=== PATIENT | male | born 1955 | race Caucasian/White ===

== ENCOUNTER 2023-11-12 13:06 | Emergency (ER) | payer OTHER, SELFPAY ==
[2023-11-12] VITALS (16 sets, daily range): BP systolic 169–204; BP diastolic 84–100; PULSE 57–77; RESP 15; TEMP 36.6; O2SAT 98–100; BMI 31.7
--- NOTE | 2023-11-12 13:17 | DI.RAD.S_ITS ---
PROCEDURE: XR FEMUR RT MIN 2V INDICATIONS: injury after fall down 1/2 flight stairs, TECHNIQUE: 2 views of the femur were acquired. COMPARISON: None. FINDINGS: Bones: No fractures or dislocations. No suspicious bony lesions. Soft tissues: No suspicious soft tissue calcifications or masses. IMPRESSION: No acute bony abnormality. Dictated by: Jeramy Alicia M.D. on 11/12/2023 at 15:33 Approved by: Jeramy Alicia M.D. on 11/12/2023 at 15:33
--- NOTE | 2023-11-12 13:17 | DI.RAD.S_ITS ---
PROCEDURE: XR TIBIA FUBULA RT 2V INDICATIONS: injury after fall down 1/2 flight stairs, TECHNIQUE: 2 views of the tibia and fibula were acquired. COMPARISON: None. FINDINGS: Bones: No fractures or dislocations. No suspicious bony lesions. Soft tissues: No suspicious soft tissue calcifications or masses. IMPRESSION: No acute bony abnormality. Dictated by: Jeramy Alicia M.D. on 11/12/2023 at 15:34 Approved by: Jeramy Alicia M.D. on 11/12/2023 at 15:34
--- NOTE | 2023-11-12 16:08 | ED.FALL ---
HPI - Fall General Chief Complaint: Fall Stated Complaint: fall, right knee deformity Time Seen by Provider: 11/12/23 15:37 Source: patient Mode of arrival: EMS History of Present Illness HPI Narrative: 67-year-old male stepping down a stairway this afternoon, missed the last step, fell to the side, had right knee pain, and his patella was deviated laterally, transported by EMS, with deformed knee. During his evaluation here in the emergency department his knee seemed to pop back into place. Still having medial and kneecap area knee pain. No other injuries. Related Data Previous Rx's Medication Instructions Recorded fluticasone propionate 50 2 spray intranasal DAILY #54.6 mL 01/25/20 mcg/actuation nasal spray,suspension (Flonase Allergy Relief) sertraline 50 mg tablet (Zoloft) 50 mg PO DAILY #90 tabs 01/25/20 Allergies Allergy/AdvReac Type Severity Reaction Status Date / Time No Known Drug Allergies Allergy Verified 11/12/23 13:18 Review of Systems Review of Systems Narrative: see HPI Patient History Medical History (Updated 11/12/23 @ 16:41 by Ash Taylor MD) Eczema Allergic rhinitis Depression Family History (Updated 02/22/20 @ 21:28 by Marie Avilez) Father Infection Mother Dementia Sister Cancer Social History Smoking Status: Never smoker Smoking Status: Never smoker alcohol intake frequency: 0-2 drinks per day Substance Use Type: does not use Exam Narrative Exam Narrative: GENERAL: Well-developed patient, in mild distress. HEAD: Atraumatic. Normocephalic. EYES: Pupils equal round and reactive. Extraocular motions intact. No scleral icterus. No injection or drainage. ENT: Nose without bleeding, purulent drainage. Throat without erythema, tonsillar hypertrophy or exudate. Airway patent. NECK: Trachea midline. Non tender CARDIOVASCULAR: Regular rate and rhythm without murmurs, gallops, or rubs. RESPIRATORY: Clear to auscultation. Breath sounds equal bilaterally. No wheezes, rales, or rhonchi. GASTROINTESTINAL: Abdomen soft, non-tender, nondistended. EXTREMITIES: Tenderness to kneecap right side, in anatomic position, no lateral right knee joint line tenderness, some tenderness to the medial joint line, we did not try valgus varus stress due to medial pain symptoms. He did seem to have really good endpoint with Haresh's testing. Good distal pulse right DP, good perfusion of the foot. Right lower extremity atraumatic, upper extremities atraumatic. BACK: Nontender without deformity or crepitance. No flank tenderness. NEURO: AOx3. SKIN: No rash or erythema of visible areas Initial Vital Signs Initial Vital Signs: Vital Signs Temperature 97.8 F 11/12/23 13:07 Pulse Rate 57 L 11/12/23 13:07 Respiratory Rate 15 11/12/23 13:07 Blood Pressure 195/100 H 11/12/23 13:07 Pulse Oximetry 100 11/12/23 13:07 Oxygen Delivery Method Room Air 11/12/23 13:07 Course Orders Ordered: ED Orders 11/12/23 13:17 XR femur RT min 2V Stat XR tibia fibula RT 2V Stat Vital Signs Vital signs: Vital Signs - 8 hr 11/12/23 13:18 11/12/23 13:30 11/12/23 13:30 Pulse Rate 60 57 L Blood Pressure 169/84 H Pulse Oximetry 99 98 Oxygen Delivery Method 11/12/23 13:55 11/12/23 13:55 11/12/23 14:00 Pulse Rate 59 L 59 L Blood Pressure 179/84 H Pulse Oximetry 100 99 Oxygen Delivery Method 11/12/23 14:00 11/12/23 14:30 11/12/23 14:30 Pulse Rate 60 Blood Pressure 178/92 H 175/88 H Pulse Oximetry 99 Oxygen Delivery Method Room Air 11/12/23 15:00 11/12/23 15:00 11/12/23 15:30 Pulse Rate 59 L 60 Blood Pressure 196/94 H Pulse Oximetry 99 99 Oxygen Delivery Method 11/12/23 15:31 11/12/23 15:31 11/12/23 16:00 Pulse Rate 57 L 77 Blood Pressure 171/86 H Pulse Oximetry 99 100 Oxygen Delivery Method 11/12/23 16:03 11/12/23 16:03 11/12/23 16:30 Pulse Rate 63 68 Blood Pressure 204/97 H Pulse Oximetry 100 99 Oxygen Delivery Method 11/12/23 16:31 11/12/23 16:31 11/12/23 16:38 Pulse Rate 66 Blood Pressure 180/86 H Pulse Oximetry 99 99 Oxygen Delivery Method Room Air Room Air 11/12/23 17:00 Pulse Rate Blood Pressure 184/93 H Pulse Oximetry Oxygen Delivery Method MDM - Fall Imaging Data Extremity x-ray #1: Radiologist's Impression: [address] [address] XRay Report Signed with Addenda Patient: Elvis Lawrence MR#: [id number] : 1955 Acct:[id number] Age/Sex: 67 / M Date of Service: 11/12/23 Loc: ED Accession Number: [id number] Procedure: XR tibia fibula RT 2V Ordering Provider: Ash Taylor MD ADDENDUMThis report includes an Addendum and supersedes previous reports for this exam. PROCEDURE: XR TIBIA FUBULA RT 2V INDICATIONS: injury after fall down 1/2 flight stairs, TECHNIQUE: 2 views of the tibia and fibula were acquired. COMPARISON: None. FINDINGS: Bones: No fractures or dislocations. No suspicious bony lesions. Soft tissues: No suspicious soft tissue calcifications or masses. IMPRESSION: No acute bony abnormality. Dictated by: Jeramy Alicia M.D. on 11/12/2023 at 15:34 Approved by: Jeramy Alicia M.D. on 11/12/2023 at 15:34 ADDENDUM: No abnormality of the knee. Dictated by: Jeramy Alicia M.D. on 11/12/2023 at 15:51 Approved by: Jeramy Alicia M.D. on 11/12/2023 at 15:51 Addendum Dictated By: Jeramy Alicia MD Addendum Signed By: 11/12/231550 Addendum Cosigned By: DD/ TD/TT: 11/12/23 PROCEDURE: XR TIBIA FUBULA RT 2V INDICATIONS: injury after fall down 1/2 flight stairs, TECHNIQUE: 2 views of the tibia and fibula were acquired. COMPARISON: None. FINDINGS: Bones: No fractures or dislocations. No suspicious bony lesions. Soft tissues: No suspicious soft tissue calcifications or masses. IMPRESSION: No acute bony abnormality. Dictated by: Jeramy Alicia M.D. on 11/12/2023 at 15:34 Approved by: Jeramy Alicia M.D. on 11/12/2023 at 15:34 Extremity x-ray #2: Radiologist's Impression: Close Femur X-Ray (Signed) Jeramy Alicia - 11/12/23 Tibia/Fibula X-Ray (Signed) Jeramy Alicia - 11/12/23 Launch?[address] [address] XRay Report Signed Patient: Elvis Lawrence MR#: [id number] : 1955 Acct:[id number] Age/Sex: 67 / M Date of Service: 11/12/23 Loc: ED Accession Number: [id number] Procedure: XR femur RT min 2V Ordering Provider: Ash Taylor MD PROCEDURE: XR FEMUR RT MIN 2V INDICATIONS: injury after fall down 1/2 flight stairs, TECHNIQUE: 2 views of the femur were acquired. COMPARISON: None. FINDINGS: Bones: No fractures or dislocations. No suspicious bony lesions. Soft tissues: No suspicious soft tissue calcifications or masses. IMPRESSION: No acute bony abnormality. Dictated by: Jeramy Alicia M.D. on 11/12/2023 at 15:33 Approved by: Jeramy Alicia M.D. on 11/12/2023 at 15:33 [facility] Narrative Medical decision making narrative: 67-year-old male had missed last step going down stairs, twisted his knee, kneecap was rotated to the right, while knee was bent 90?, EMS was called, he was splinted, during his evaluation his knee seemed to be improved, and felt like it went back into position, by time x-rays were actually performed they were anatomic, no injuries, see x-ray reports. He seems distally neurovascularly intact. He has medial right knee joint line tenderness, no gross effusion. No peripatellar tenderness. Good Haresh's and point on testing, did not attempt valgus or varus stress due to pain and tenderness medially. Placed into a knee immobilizer splint, crutches nonweightbearing. [id number] Tylenol and or Motrin, declined other pain medications. Home with . Follow up with local orthopedic surgeon, contact information provided. Return precautions discussed Discharge Plan Departure Patient Disposition: Home Clinical Impression: Strain of right knee, Dislocation of the knee cap Activity Restrictions/Additional Instructions: Fall going down last couple of steps of a stairway, missed the step, fall onto the right knee with bending of the knee and right lateral position by history of the kneecap, EMS transport, with splint in place, post splinting there seemed to be spontaneous improvement in kneecap position, by the time x-rays were done those results showed normal anatomic position of kneecap and other structures, no fractures obvious. Some tenderness to the right medial knee joint line, possible strain or injury to the medial collateral and/or medial meniscal ligaments of that knee. You did not describe separation of the foreleg from the thigh, no complete knee dislocation described, good pulse to the right foot, we did discuss advanced imaging of the vessels of the right knee/leg region, not indicated at this time given exam and history. Placed in crutches. Knee immobilizer. Follow up with local orthopedic surgeon next couple of days, call office tomorrow during regular hours. Take Tylenol and or ibuprofen as needed for pain control. Elevate ice as needed for reduced inflammation. Use crutches and do not put any weight on that knee for now until cleared by Orthopedic surgery. Return earlier to this/nearest emergency department for any change worsening symptoms or any concerns prior Prescriptions: No Action fluticasone propionate [Flonase Allergy Relief] 50 mcg/actuation spray,suspension 2 spray NASAL DAILY Qty: 54.6 3RF Rx Instructions: administer into each nostril sertraline [Zoloft] 50 mg tablet 50 mg PO DAILY Qty: 90 3RF Referrals: Kulwinder Beck ARNP [Primary Care Provider] - Aquilino Flanagan MD [Physician] - Stand Alone Forms: Patient Portal/API
== END 2023-11-12 17:06 | disposition home or self-care (01) ==
PROVIDERS: Emergency Provider Emergency Medicine; PCP Registered Nurse Diabetes Educator
DX: S83.91XA Sprain of unspecified site of right knee, initial encounter (principal); S83.004A Unspecified dislocation of right patella, initial encounter; W10.9XXA Fall (on) (from) unspecified stairs and steps, initial encounter
CPT/HCPCS: 73552; 73590; 99283

== ENCOUNTER → 2023-11-20 13:04 | Outpatient (CLI) | payer OTHER, SELFPAY ==
--- NOTE | 2023-11-20 13:32 | DI.MRI.S_ITS ---
PROCEDURE: MR KNEE RT WO CON INDICATIONS: DISLOCATION RIGHT KNEE /SPRAIN OF MEDIAL COLLATERAL TECHNIQUE: Noncontrast sagittal PD fast spin echo and T2 fast spin echo with fat saturation, sagittal 3-D FLASH with fat saturation; coronal T1 spin echo and PD fast spin echo with fat saturation, and axial PD fast spin echo with fat saturation through the knee. COMPARISON: None. FINDINGS: Image quality: Excellent. Menisci: Subtle oblique tear is seen involving posterior horn of medial meniscus extending to inferior articulating surface. The lateral meniscus is intact. The meniscal root ligaments appear intact. Cruciate ligaments: The anterior and posterior cruciate ligaments appear intact. Medial structures: The medial collateral ligament appears thickened with mild surrounding edema. Visualized portions of the pes anserinus tendons appear normal. No abnormal bursal fluid. Lateral structures: The lateral collateral ligament, long and short heads of the biceps femoris tendon appear intact. The popliteus tendon appears normal. Iliotibial band appears normal. Anterior structures: There is rupture of the medial patellofemoral ligament at its patellar insertion with significant lateral subluxation of patella. The lateral patellofemoral ligament is intact. High-grade partial-thickness tear involving distal quadriceps tendon at its superior patellar insertion with proximally retracted torn tendon fibers and extensive surrounding edema and fluid. Diffuse patellar tendinosis is seen. No patellar tendon rupture. Bones and cartilage: No acute fracture. Mild tricompartmental osteoarthritis and low-grade chondromalacia is seen. Joint space: Extensive subcutaneous soft tissue edema and swelling surrounding right knee is seen. There is moderate to large knee joint fluid. No Lea's cyst. Normal appearing synovial plicae are incidentally noted. IMPRESSION: 1. Diffuse soft tissue swelling and edema surrounding right knee. No discrete drainable fluid collection. Moderate to large joint effusion, no loose bodies. 2. Ruptured medial patellofemoral ligament with lateral subluxation of patella. No juliet dislocation. Mild tricompartmental osteoarthritis. No fracture is seen. 3. High-grade partial-thickness tear involving distal quadriceps tendon at its superior patellar insertion with proximally retracted torn tendon fibers and surrounding soft tissue edema and fluid. Diffuse patellar tendinosis. 4. Subtle oblique tear involving posterior horn of medial meniscus extending to inferior articulating surface. The lateral meniscus is intact. 5. The cruciate ligaments are intact. 6. Low to moderate grade intrasubstance partial-thickness tear involving medial collateral ligament near its femoral insertion. Dictated by: Omega Salazar M.D. on 11/20/2023 at 16:52 Approved by: Omega Salazar M.D. on 11/20/2023 at 16:56
== END ==
PROVIDERS: PCP Family Medicine; Referring Provider Family Medicine; Visit Provider Family Medicine
DX: S83.104D Unspecified dislocation of right knee, subsequent encounter (principal); S83.411D Sprain of medial collateral ligament of right knee, subsequent encounter; W10.8XXD Fall (on) (from) other stairs and steps, subsequent encounter; M25.461 Effusion, right knee; S76.111A Strain of right quadriceps muscle, fascia and tendon, initial encounter; M17.11 Unilateral primary osteoarthritis, right knee; S86.811A Strain of other muscle(s) and tendon(s) at lower leg level, right leg, initial encounter; S83.241A Other tear of medial meniscus, current injury, right knee, initial encounter
CPT/HCPCS: 73721